=== PATIENT | female | born 1975 | race Caucasian/White ===

== ENCOUNTER 2017-01-01 09:00 | Emergency (ER) | payer BC ==
--- NOTE | 2017-01-01 09:04 | PDOC ---
History of Present Illness - General Chief Complaint: Migraine Headache Stated Complaint: HEADACHE Time Seen by Provider: 01/01/17 09:03 - History of Present Illness Initial Comments: 01/01/17 09:15 Chief complaint: Headache History of present illness: Patient complains of an intractable migraine headache beginning Saturday. She has a long history of migraines, is maintained on beta mahendra, and uses a triptan as needed. Took her triptan yesterday, with some relief, but none today. This morning she has taken Zofran and Excedrin. She is trying to alternate the triptan and aspirin. Her last migraine of this severity was approximately 6 months ago. Triggering factors seem to be stress. Today she complains of photophobia and nausea as well. Review of systems: No visual or focal neurologic symptoms, unsteadiness of gait , chest pain, shortness of breath, abdominal pain, diarrhea, vomiting, urinary tract symptoms, vaginal bleeding or discharge, and remainder systems reviewed and found to be negative Past medical history: Crohn's disease in remission, celiac disease, eating disorder for which she is undergoing inpatient treatment. She has been on a weight gain diet and has been increasing her weight, according to her counselor who is present with her. Migraines as noted. Social history: Patient denies alcohol, drugs, or tobacco. Fully active and without disability other than her eating disorder and periodically lost Family history: Reviewed and noncontributory Physical exam: Alert and oriented well-developed well-nourished moderate distress due to headache and photophobia and nausea Afebrile, vital signs normal However, blood pressure is on the low side at 95/65 PERRLA 4 mm, fundi benign with sharp disc margins and good central venous pulsations. ENT clear. Mucous membranes moist Neck supple without bruit mass or nodes Lungs clear CV regular without murmur rub or gallop Abdomen benign Neurological C2 to 12 intact. No focal sensory or motor deficits. Gait stable and unimpaired. Cerebellar intact. Strength full and symmetric Skin clear, no rash, adequate turgor and wet mucous membranes Extremities no CCE Impression: Exacerbation of migraine headaches, typical pattern, no sign of infection or other complicating patterns, no neurologic deficits Plan: Additional analgesics and observation, additional treatment as needed. Past History - Past Medical History Allergies/Adverse Reactions: Allergies Allergy/AdvReac Type Severity Reaction Status Date / Time gluten Allergy Verified 01/01/17 10:14 Penicillins Allergy Verified 01/01/17 09:03 BEE STING Allergy Uncoded 01/01/17 09:03 DAIRY Allergy Uncoded 01/01/17 09:03 Home Medications: Ambulatory Orders Aspirin/Acetaminophen/Caffeine [Excedrin Migraine Caplet] 2 each PO ASDIR PRN Gabapentin 600 mg PO HS 01/01/17 Gabapentin [Neurontin] 300 mg PO AM 01/01/17 Ibuprofen 800 mg PO TID PRN #20 tablet 01/01/17 Lactase [Lactaid] 1 tab PO AC PRN 01/01/17 Mesalamine [Pentasa] 1,000 mg PO QID 01/01/17 Metoprolol Succinate [Toprol XL -] 12.5 mg PO BID 01/01/17 Mylan N 3 mg PO TID 01/01/17 Ondansetron HCl [Zofran] 4 mg PO Q8H 01/01/17 Pantoprazole Sodium 40 mg PO DAILY 01/01/17 Pentosan Polysulfate Sodium [Elmiron] 100 mg PO TID 01/01/17 Prazosin HCl [Minipress] 2 mg PO HS 01/01/17 Rizatriptan Benzoate [Rizatriptan] 10 mg PO ASDIR PRN 01/01/17 Tamsulosin HCl [Flomax] 0.4 mg PO DAILY 01/01/17 Venlafaxine HCl ER [Effexor Xr -] 150 mg PO HS 01/01/17 Venlafaxine HCl ER [Effexor Xr -] 225 mg PO HS 01/01/17 Cancer: Yes (BREAST CA) GI Disorders: Yes (CROHN'S, CELIAC) - Psycho/Social/Smoking Cessation Hx Anxiety: Yes Suicidal Ideation: No Smoking History: Never smoked Hx Alcohol Use: No Drug/Substance Use Hx: No ED Treatment Course - LABORATORY CBC & Chemistry Diagram: 01/01/17 09:25 01/01/17 09:30 Medical Decision Making - Medical Decision Making 01/01/17 13:40 Patient slept a considerable period of time, symptoms have resolved almost completely.. No further nausea. Headache greatly improved. Discharged with her counselor, fully ambulatory, neurological exam intact, to follow-up as directed. *DC/Admit/Observation/Transfer Diagnosis at time of Disposition: Migraine Qualifiers: Migraine type: unspecified Status migrainosus presence: with status migrainosus Intractability: intractable Qualified Code(s): G43.911 - Migraine, unspecified, intractable, with status migrainosus - Discharge Dispostion Disposition: HOME Condition at time of disposition: Improved Admit: No - Prescriptions Prescriptions: Ibuprofen 800 mg PO TID PRN #20 tablet PRN Reason: Headache - Referrals Referrals: Justo Moe MD [Staff Physician] - 1 week - Patient Instructions Printed Discharge Instructions: DI for Migraine Additional Instructions: Rest, light diet, fluids, avoid excessive visual stimulation Did not take anymore of your rizatriptan for this migraine episode. Use other medication as prescribed. Continue Zofran for nausea. See neurologist as necessary for better control if your migraines continue to recur more frequently. Return to ER if symptoms worsen or if any additional symptoms develop.
[2017-01-01] MEDS ORDERED: SODIUM CHLORIDE 1,000 ML IV STA (09:09)
[2017-01-01 09:15] VITALS: BMI 17.9
[2017-01-01] MEDS ORDERED: KETOROLAC TROMETHAMINE 30 MG/1 ML VIAL IVPUSH ONE (09:35)
[2017-01-01] MEDS ORDERED: KETOROLAC TROMETHAMINE 30 MG/1 ML VIAL ONE (09:40)
[2017-01-01 09:46] LABS: URINE APPEARANCE Clear; URINE BILIRUBIN 1+ (NEGATIVE); URINE BLOOD 3+ (NEGATIVE); URINE COLOR YELLOW; URINE GLUCOSE (UA) Negative (NEGATIVE); URINE KETONE Trace (NEGATIVE); URINE LEUK ESTERASE Negative (NEGATIVE); URINE NITRITE Negative (NEGATIVE); URINE PROTEIN 1+ (NEGATIVE); URINE UROBILINOGEN 0.2 E.U/dl (0.2-1.0)
[2017-01-01 09:47] LABS: URINE BACTERIA MODERATE /hpf (NEGATIVE); URINE WBC 0-3 (3-5)
[2017-01-01 10:07] LABS: ALBUMIN 3.8 g/dl (3.5-5.0); ALK PHOS 51 U/L (32-92); ANION GAP 4 (8-16); BILIRUBIN,TOTAL 0.3 mg/dl (0.2-1.0); CALCIUM 8.9 mg/dl (8.4-10.2); CO2 30 mmol/L (22-28); CREATININE 0.6 mg/dl (0.6-1.3); GLUCOSE,RANDOM 78 mg/dl (74-106); SGOT/AST 17 U/L (10-42); SGPT/ALT 16 U/L (10-40); TOT PROT 5.9 g/dl (6.4-8.3)
[2017-01-01 10:07] LABS: BASOPHIL 0.6 % (0-2.0); EOSINOPHIL 0.3 % (0-4.5); MCH 31.2 pg (25.7-33.7); MCHC 33.6 g/dl (32.0-36.0); MEAN CELL VOLUME 92.9 fl (80-96); PLATELET COUNT 187 K/MM3 (134-434); RDW 12.2 % (11.6-15.6); WHITE BLOOD COUNT 6.4 K/mm3 (4.0-10.8)
[2017-01-01] MEDS ORDERED: PROCHLORPERAZINE INJECTION 10 MG/2 ML VIAL IVPB ONE (11:13)
[2017-01-01 13:59] VITALS: BP 115/64; PULSE 76; TEMP 98.1
== END 2017-01-01 13:50 | disposition home or self-care (01) ==
LOC: FER 09:00
PROC: 3E033GC Introduction of Other Therapeutic Substance into Peripheral Vein, Percutaneous Approach (ICD-10-PCS; principal; 2017-01-01)
PROC: 3E0333Z Introduction of Anti-inflammatory into Peripheral Vein, Percutaneous Approach (ICD-10-PCS; 2017-01-01)
PROC: 3E0337Z Introduction of Electrolytic and Water Balance Substance into Peripheral Vein, Percutaneous Approach (ICD-10-PCS; 2017-01-01)
DX: G43.911 Migraine, unspecified, intractable, with status migrainosus (principal); Z85.3 Personal history of malignant neoplasm of breast; K50.90 Crohn's disease, unspecified, without complications
CPT/HCPCS: 36415; 80053; 81003; 81015; 84703; 85025; 87086; 99285-25

== ENCOUNTER 2017-01-18 22:53 | Emergency (ER) | payer BC ==
--- NOTE | 2017-01-18 23:00 | PDOC ---
History of Present Illness - General Chief Complaint: Chest Pain Stated Complaint: THORACIC PAIN - History of Present Illness Initial Comments: This 41-year-old woman with a history of Crohn's /celiac disease, breast cancer, migraines and eating disorder is sent here from [facility] (facility for eating disorder rehabilitation) with several hour history of pleuritic chest pain. Pain is located in the mid substernal area and also bilateral posterior chest area. Patient describes pain as occurring with movement and deep breathing. No known history of trauma or overuse involving upper body muscles. She is not short of breath and has not had a cough. She had 2 episodes of feeling lightheaded when sitting/standing upright suddenly from a supine position. Lightheadedness lasted a few seconds and resolved spontaneously. She has felt mildly nauseated but states that this is common for her with her history of Crohn's/celiac. She has not had any diaphoresis/arm or neck pain. She denies lower extremity edema or pain. Patient is a nonsmoker; she has no history of asthma or other chronic respiratory issues. No history of estrogen use; no history of prolonged inactivity or recent surgery Past History - Past Medical History Allergies/Adverse Reactions: Allergies Allergy/AdvReac Type Severity Reaction Status Date / Time gluten Allergy Verified 01/01/17 10:14 Penicillins Allergy Verified 01/01/17 09:03 BEE STING Allergy Uncoded 01/01/17 09:03 DAIRY Allergy Uncoded 01/01/17 09:03 Home Medications: Ambulatory Orders Aspirin/Acetaminophen/Caffeine [Excedrin Migraine Caplet] 2 each PO ASDIR PRN Ibuprofen 800 mg PO TID PRN #20 tablet 01/01/17 Lactase [Lactaid] 1 tab PO AC PRN 01/01/17 Mesalamine [Pentasa] 1,000 mg PO QID 01/01/17 Metoprolol Succinate [Toprol XL -] 12.5 mg PO BID 01/01/17 Ondansetron HCl [Zofran] 4 mg PO Q8H 01/01/17 Pantoprazole Sodium 40 mg PO DAILY 01/01/17 Prazosin HCl [Minipress] 2 mg PO HS 01/01/17 Tamsulosin HCl [Flomax] 0.4 mg PO DAILY 01/01/17 Venlafaxine HCl ER [Effexor Xr -] 225 mg PO HS 01/01/17 Aspirin/Acetaminophen/Caffeine [Excedrin Migraine Caplet] 2 each PO PRN PRN Bismuth Subsalicylate [Pepto-Bismol -] 60 ml PO QID PRN 01/18/17 Cholecalciferol (Vitamin D3) [Vitamin D3 -] 1,000 unit PO DAILY 01/18/17 Dimenhydrinate [Dramamine] 50 mg PO Q4HWA PRN 01/18/17 Epinephrine (Epi-Pen 0.3MG) [Epipen 0.3MG -] 0.3 mg IM ASDIR PRN 01/18/17 Guaifenesin Dm [Robitussin Dm] 10 ml PO Q4H PRN 01/18/17 Hydroxyzine Pamoate [Vistaril -] 10 mg PO DAILY PRN 01/18/17 Iron Ag/C/B12/Ca/Suc.acid/Stom [Multigen Caplet] 1 each PO DAILY 01/18/17 Mag Carb/Al Hydrox/Alginic AC [Gaviscon Liquid] 10 ml PO TID PRN 01/18/17 Melatonin/Pyridoxine [Melatonin 3 mg Tablet] 1 each PO HS 01/18/17 Potassium Chloride [K-Dur -] 20 meq PO DAILY 01/18/17 Propranolol HCl 80 mg PO DAILY 01/18/17 Simethicone [Gas-X] 125 mg PO BID PRN 01/18/17 Sumatriptan Succinate [Imitrex] 50 mg PO PRN PRN 01/18/17 Valacyclovir HCl [Valtrex] 1,000 mg PO TID 01/18/17 Gabapentin 300 mg PO AM 01/19/17 Gabapentin 600 mg PO HS 01/19/17 Pentosan Polysulfate Sodium [Elmiron] 100 mg PO TID 01/19/17 Risperidone 3 mg PO TID 01/19/17 Venlafaxine HCl [Effexor -] 300 mg PO AM 01/19/17 Cancer: Yes (BREAST CA) GI Disorders: Yes (CROHN'S, CELIAC) Psychiatric Problems: Yes (EATING DISORDER) - Psycho/Social/Smoking Cessation Hx Anxiety: Yes Suicidal Ideation: No Smoking History: Never smoked Hx Alcohol Use: No Drug/Substance Use Hx: No Review of Systems - Review of Systems Able to Perform ROS?: Yes Comments:: 12 point review of systems is negative except for what is noted in the history of present illness *Physical Exam - Vital Signs Last Vital Signs Temp Pulse Resp BP Pulse Ox 98.3 F 90 18 113/73 98 01/18/17 23:10 01/18/17 23:10 01/18/17 23:10 01/18/17 23:10 01/18/17 23:10 - Physical Exam Comments: GENERAL: Adult female, sleepy but responsive and oriented 3, no acute distress HEAD: Normal with no signs of trauma. EYES: PERRLA, EOMI, sclera anicteric, conjunctiva clear. ENT: Ears normal, nares patent, oropharynx clear without exudates. Dry mucous membranes. NECK: Normal range of motion, supple without lymphadenopathy, JVD, or masses. CHEST WALL: Mild tenderness to palpation mid sternum and bilateral posterior chest; no crepitus or step offs LUNGS: Breath sounds equal, clear to auscultation bilaterally. No wheezes, and no crackles. HEART:Regular rate and rhythm, normal S1 and S2 without murmur, rub or gallop. ABDOMEN:.normal bowel sounds No guarding,tenderness or rebound.No masses No distention. EXTREMITIES: Normal range of motion, no edema. No clubbing or cyanosis. No erythema, or tenderness. NEUROLOGICAL: Cranial nerves II through XII grossly intact. Normal speech. No focal neurological deficits. MUSCULOSKELETAL: Back non-tender to palpation, no CVA tenderness SKIN: Warm, Dry, normal turgor, no rashes or lesions noted. ED Treatment Course - LABORATORY CBC & Chemistry Diagram: 01/18/17 23:00 01/18/17 23:00 - ADDITIONAL ORDERS Additional order review: Laboratory Results 01/18/17 01/18/17 01/18/17 23:00 23:00 23:00 INR 0.93 L D-Dimer < 200 Sodium Potassium Chloride Carbon Dioxide Anion Gap BUN Creatinine Creat Clearance w eGFR Random Glucose Calcium Total Bilirubin AST ALT Alkaline Phosphatase Creatine Kinase 48 Troponin I < 0.03 L Total Protein Albumin 01/18/17 23:00 INR D-Dimer Sodium 136 Potassium 4.1 D Chloride 100 Carbon Dioxide 31 H Anion Gap 5 L BUN 14 D Creatinine 0.6 Creat Clearance w eGFR > 60 Random Glucose 98 Calcium 9.3 Total Bilirubin 0.4 AST 26 D ALT 27 Alkaline Phosphatase 61 Creatine Kinase Troponin I Total Protein 7.1 Albumin 4.3 01/18/17 23:00 RBC 3.86 MCV 92.8 MCHC 33.8 RDW 12.4 MPV 9.8 D Neutrophils % 69.2 Lymphocytes % 20.1 Monocytes % 9.5 Eosinophils % 0.5 Basophils % 0.7 - Medications Given in the ED: ED Medications Discontinued Medications Generic Name Dose Route Start Last Admin Trade Name David PRN Reason Stop Dose Admin Ketorolac Tromethamine 30 mg 01/19/17 00:22 01/19/17 00:27 Toradol Injection - IVPUSH 01/19/17 00:23 30 mg ONCE ONE Administration Progress Note - Progress Note Progress Note: Because of this patient's history of pleuritic substernal and bilateral posterior chest pain, d-dimer will be sent along with CBC/chemistry profile/INR/ cardiac enzymes. Patient has no significant risk factors for coronary artery disease. She has a past medical history of breast carcinoma but no other risk factors for DVT/PE. 12-lead electrocardiogram is performed and interpreted by me: Normal sinus rhythm at 92 bpm; axis, intervals are normal. There is flattening of T waves in V5/ V6. No evidence of acute ST elevation or other T-wave abnormalities. Medical Decision Making - Medical Decision Making 01/19/17 00:23 Laboratory values are essentially normal; cardiac enzymes and d-dimer are not elevated. Remainder of CBC/INR/chemistry profile shows no significant abnormalities. Clinical presentation most consistent with chest wall strain versus costochondritis Patient states that she has taken nonsteroidal anti-inflammatories in the past and has not had adverse effects. Toradol 30 mg IV will be given as an anti- inflammatory . *DC/Admit/Observation/Transfer Diagnosis at time of Disposition: Chest wall pain - Discharge Dispostion Disposition: HOME Condition at time of disposition: Stable - Patient Instructions Printed Discharge Instructions: DI for Atypical Chest Pain Additional Instructions: Continue medications as prescribed Avoid strenuous activity involving upper body for the next several days Return to ER if you have persistent chest pain or experience shortness of breath
[2017-01-18 23:12] VITALS: BP 113/73; PULSE 90; TEMP 98.3; BMI 21.2
[2017-01-18 23:17] LABS: BASOPHIL 0.7 % (0-2.0); EOSINOPHIL 0.5 % (0-4.5); MCH 31.4 pg (25.7-33.7); MCHC 33.8 g/dl (32.0-36.0); MEAN CELL VOLUME 92.8 fl (80-96); MEAN PLT VOLUME 9.8 fl (7.5-11.1); NEUTROPHILS 69.2 % (42.8-82.8); PLATELET COUNT 213 K/MM3 (134-434); RDW 12.4 % (11.6-15.6); WHITE BLOOD COUNT 7.5 K/mm3 (4.0-10.8)
[2017-01-18 23:21] LABS: INR 0.93 (0.82-1.09); PROTHROMBIN TIME (PATIENT) 10.4 SEC (10.2-13.0)
[2017-01-18 23:27] LABS: ALBUMIN 4.3 g/dl (3.5-5.0); ALK PHOS 61 U/L (32-92); ANION GAP 5 (8-16); BILIRUBIN,TOTAL 0.4 mg/dl (0.2-1.0); CALCIUM 9.3 mg/dl (8.4-10.2); CO2 31 mmol/L (22-28); CPK(DFH) 48 IU/L (26-140); CREATININE 0.6 mg/dl (0.6-1.3); GLUCOSE,RANDOM 98 mg/dl (74-106); SGOT/AST 26 U/L (10-42); SGPT/ALT 27 U/L (10-40); TOT PROT 7.1 g/dl (6.4-8.3)
[2017-01-18 23:40] LABS: TROPONIN I (DFP) < 0.03 ng/ml (0.03-0.50)
[2017-01-19] MEDS ORDERED: KETOROLAC TROMETHAMINE 30 MG/1 ML VIAL IVPUSH ONE (00:22)
[2017-01-19] MEDS ORDERED: KETOROLAC TROMETHAMINE 30 MG/1 ML VIAL ONE (00:23)
--- NOTE | 2017-01-22 09:25 | EKG ---
Test Reason : Blood Pressure : / mmHG Vent. Rate : 092 BPM Atrial Rate : 092 BPM P-R Int : 114 ms QRS Dur : 076 ms QT Int : 378 ms P-R-T Axes : 063 076 073 degrees QTc Int : 467 ms NORMAL SINUS RHYTHM NONSPECIFIC T WAVE ABNORMALITY NO PREVIOUS ECGS AVAILABLE Confirmed by MD KEISHA, KALPESH ([id number]) on 01/22/2017 9:25:06 AM Referred By: MD FREGOSO Confirmed By:KALPESH VALDES MD
== END 2017-01-19 00:38 | disposition home or self-care (01) ==
LOC: FER 22:53
PROC: 3E0333Z Introduction of Anti-inflammatory into Peripheral Vein, Percutaneous Approach (ICD-10-PCS; principal; 2017-01-18)
DX: R07.89 Other chest pain (principal); K50.90 Crohn's disease, unspecified, without complications; Z85.3 Personal history of malignant neoplasm of breast; F50.9 Eating disorder, unspecified; Z79.82 Long term (current) use of aspirin
CPT/HCPCS: 36415; 80053; 82550; 84484; 85025; 85379; 85610; 93005; 93010; 99281-25